=== PATIENT | female | born 1970 | race Caucasian/White ===

== ENCOUNTER 2021-12-24 11:48 | Emergency (ER) | payer BC, SELFPAY ==
[2021-12-24] VITALS (7 sets, daily range): BP systolic 108–123; BP diastolic 55–76; PULSE 64–97; RESP 17–19; TEMP 37.1; O2SAT 99–100; BMI 22.1
--- NOTE | 2021-12-24 12:09 | HMH.EDUTC ---
[place] Disposition Clinical Impression: Blurry vision, bilateral Head ache Qualifiers: Headache type: unspecified Headache chronicity pattern: unspecified pattern Intractability: not intractable Qualified Code(s): R51.9 - Headache, unspecified Disposition: Still a Patient Condition on Discharge: Fair Referrals: Provider,Referral, [Primary Care Provider] - Time of Disposition: 12:30 Medical Decision Making - Medical Records Medical records reviewed: No: I reviewed the patient's medical records. - Tevin Inquiry Pt receiving controlled substance: No Vital Signs: 12/24/21 12:01 Temperature 98.7 F Temperature Source Oral Pulse Rate [Left Radial] 97 H Respiratory Rate 19 Blood Pressure [Right Arm] 114/55 L Blood Pressure Mean [Right Arm] 74 02 Sat by Pulse Oximetry 99 - Lab Data Lab Results 12/24/21 12:10: Influenza Type A Ag Negative, Influenza Type B Ag Negative Medical Decision Narrative: She was transferred to the er due to her blurry vision and headache. [place] HPI - General Stated complaint: h/a, blurred vision Time Seen by Provider: 12/24/21 12:09 Mode of Arrival: Ambulatory Source of Information: Patient Limitations: No Limitations Description of Symptoms (Recalled from Triage Doc. by RN): pt states she was washing dishes and got a sharp pain around her belly button. then pt began to have blurry vision. pt also c/o headache. symtpoms have been off and on for 3 days HEENT Symptoms (Recalled from RN notes): Yes Resp Symptoms (Recalled from RN notes): No Skin Symptoms (Recalled from RN notes): No MS Symptoms (Recalled from RN notes): No Functional Status (Recalled from RN notes): wnl - History of Present Illness Provider Complaint: She states that for the past 2 days she has had blurry vision in both eyes, headache and she has felt bad. She denies that this is the worst headache of her life. She denies any weakness. - Related Data Home Medications Medication Instructions Recorded Confirmed No Known Home Medications 01/09/19 01/09/19 Allergies Allergy/AdvReac Type Severity Reaction Status Date / Time erythromycin base Allergy Severe Hives Verified 12/24/21 12:05 metronidazole [From Flagyl] Allergy Severe Hives Verified 12/24/21 12:05 Penicillins Allergy Severe Hives Verified 12/24/21 12:05 - Worker's Comp Is this a Worker's Comp case?: No [facility] History - Hepatitis A Screen Attestation statement:: This patient has been screened for Hepatitis A risk factors. I have reviewed the patient's past medical history: Yes Medical History: Denies:: Cancer, Diabetes Mellitus Type 1, Diabetes Mellitus Type 2, MRSA Amputation: No - Social History Alcohol Intake: never Occupational Status: employed Housing: house ROS Obtained: Yes All systems reviewed & no additional complaints - Constitutional Constitutional: Denies chills, Denies fever(s), Reports poor appetite, Reports malaise - Eyes Eyes: Denies blind spots, Reports blurry vision, Denies change in vision, Denies diplopia, Denies eye discharge, Denies dry eyes, Denies itchy eyes, Reports loss of peripheral vision, Denies eye pain - ENT Ears, Nose, Mouth, and Throat: Denies dizziness, Denies otalgia, Denies sore throat - Cardiovascular Cardiovascular: Denies chest pain - Respiratory Respiratory: Denies chest congestion, Reports cough, Denies dyspnea, Denies stridor, Denies wheezing - Gastrointestinal Gastrointestingal: Reports: nausea. Denies: abdominal pain, excessive passing of gas, vomiting - Musculoskeletal Musculoskeletal: Denies joint pain - Integumentary/Breasts Skin/Breast: Denies rash Physical Exam - General General appearance: alert, in no apparent distress - Head Head exam: atraumatic, normocephalic, normal inspection - Eye Eye exam: Present: normal appearance, PERRL, EOMI - ENT ENT exam: Present: normal exam, normal oropharynx, mucous membranes moist, TM's normal bilaterally, no
[2021-12-24 12:21] LABS: UTC Influenza A Antigen Negative (Negative)
[2021-12-24 12:22] LABS: UTC Influenza B Antigen Negative (Negative)
--- NOTE | 2021-12-24 12:48 | PC.NURSE ---
ED MD at
--- NOTE | 2021-12-24 13:17 | CT_ITS ---
FINAL REPORT TECHNIQUE: Thin section axial images were obtained from skull base to vertex without contrast. CLINICAL HISTORY: .headache and blurry vision x 3 days FINDINGS: There is no mass effect or midline shift. There is no hydrocephalus. The ventricles are symmetric in size and configuration. There is no extra-axial or intraparenchymal hemorrhage. The posterior fossa is without acute abnormality. The basilar cisterns are preserved. The soft tissues are without acute abnormality. No acute osseous abnormality is identified. IMPRESSION: No acute intracranial abnormality. Reviewed, Interpreted and Dictated by Mckenzie Chaudhry MD Transcribed by Scot Guzman Authenticated by Mckenzie Chaudhry MD on 12/24/2021 04:01:[address] [facility]
[2021-12-24 13:59] LABS: Basophils # 0.1 K/mm3 (0-0.2); Basophils % 0.9 % (0.1-2.0); Eosinophils % 0.3 % (0.1-12.0); Hematocrit 42.1 % (37.0-47.0); Hemoglobin 14.4 g/dL (12.2-16.2); Lymphocytes # 0.8 K/mm3 (0.7-4.5); Lymphocytes % 9.6 % (10-50); Mean Corpuscular HGB Conc 34.1 g/dL (31.8-35.4); Mean Corpuscular Hemoglobin 29.5 pg (27.0-31.2); Mean Corpuscular Volume 86.6 fl (81-99); Mean Platelet Volume 8.9 fl (7.4-10.4); Monocytes # 0.2 K/mm3 (0.1-1.0); Monocytes % 2.5 % (1.7-9.3); Neutrophils # 6.9 K/mm3 (1.8-7.8); Neutrophils % 86.8 % (37.0-80.0); Platelet Count 244 K/mm3 (142-424); Red Blood Count 4.86 M/mm3 (4.20-5.40); Red Cell Distribution Width 14.4 % (11.5-17.5)
[2021-12-24 14:00] LABS: Chloride 105 mmol/L (98-107); MANUAL DIFFERENTIAL MANUAL DIFFERENTIAL (MANUAL DIFF); Sodium 139 mmol/L (136-145)
[2021-12-24 14:01] LABS: Potassium 3.9 mmoL/L (3.5-5.1)
[2021-12-24 14:03] LABS: Alanine Aminotransferase 26 U/L (12-78); Albumin Level 4.9 g/dl (3.5-5.0); Albumin/Globulin Ratio 1.7 (1.1-1.8); Alkaline Phosphatase 46 U/L (38-126); Anion Gap 13.9 mEq/L (5-15); Aspartate Amino Transferase 30 U/L (14-36); Bilirubin,Total 0.4 mg/dl (0.2-1.3); Blood Urea Nitrogen 16 mg/dl (7-17); Carbon Dioxide 24 mmol/L (22.0-30.0); Creatinine Clearance Estimated 145 mL/min (50-200); Estimated Glomerular Filt Rate 131 ml/min (>60); GFR (African American) 158 ML/MIN (>60); Globulin 2.9 g/dL (1.3-3.2); Glucose 105 mg/dl (74-100); Total Protein,Serum 7.8 g/dl (6.3-8.2)
[2021-12-24 14:17] LABS: Eosinophils % 1 % (0-3); Lymphocytes % 10 % (10-50); Monocytes % 1 % (2-9); Neutrophils % 87 % (42-76); Platelet Estimate Normal; RBC Morphology Normal; Total Cells Counted 100
[2021-12-24 14:20] LABS: HCG Qualitative, Serum Negative (Negative)
--- NOTE | 2021-12-24 15:22 | PC.NURSE ---
Contacted Juana in radiology regarding head CT report; she reports she is going to message the radiologist to figure out why it hasnt been read yet
--- NOTE | 2021-12-24 15:45 | PC.NURSE ---
per conrad in radiology there is a issue with reports not crossing over to the system. States as soon as she receives the report she will print it down to out printer.
--- NOTE | 2021-12-24 16:08 | INFXCTL.NOTE ---
FABIOLA COVINGTON at discussing CT results with pt.
--- NOTE | 2021-12-24 16:19 | HMH.EDGENADL ---
[place] Disposition Clinical Impression: Blurry vision, bilateral Head ache Qualifiers: Headache type: unspecified Headache chronicity pattern: unspecified pattern Intractability: not intractable Qualified Code(s): R51.9 - Headache, unspecified Disposition: Home, Self-Care Condition on Discharge: Good Instructions: DI for Headache Additional Instructions: Please follow-up with your primary care physician in 2 to 3 days for further management. Please also see the salesperson sheet music, Dr. Fabien Potter at [facility] for an official eye exam within the next week. Please call [phone] to set up appointment. Please return to the Ed for any worsening symptoms such as numbness, weakness, difficulty ambulating or any other concerns. Please also discuss with your primary care physician regarding treatment for your complex migraines. Referrals: Provider,Referral, [Primary Care Provider] - - Critical Care Critical Care Time: No Attestation: On 12/24/21, the high probability of a clinically significant, sudden or life threatening deterioration of the following system(s) required my full and direct attention, intervention and personal management. The time I documented below is in addition to time spent performing reported procedures but includes the following listed in this critical care notation. Medical Decision Making - Medical Records Medical records reviewed: Yes: I reviewed the patient's medical records. - Tevin Inquiry Pt receiving controlled substance: No Vital Signs: 12/24/21 12:01 12/24/21 12:19 12/24/21 13:59 Temperature 98.7 F 98.7 F Temperature Source Oral Oral Pulse Rate Pulse Rate [Left Radial] 97 H 97 H 76 Respiratory Rate 19 19 Blood Pressure Blood Pressure [Right Arm] 114/55 L 114/55 L 123/76 Blood Pressure Mean [Right Arm] 74 74 91 Blood Pressure Source [Right Arm] Automatic Cuff Automatic Cuff Blood Pressure Position [Right Arm] Sitting Sitting 02 Sat by Pulse Oximetry 99 99 100 Oxygen Delivery Method Room Air Room Air 12/24/21 14:00 12/24/21 14:43 12/24/21 15:20 Temperature Temperature Source Pulse Rate Pulse Rate [Left Radial] 65 64 70 Respiratory Rate Blood Pressure Blood Pressure [Right Arm] 109/64 L 108/55 L 119/71 Blood Pressure Mean [Right Arm] 79 72 87 Blood Pressure Source [Right Arm] Automatic Cuff Blood Pressure Position [Right Arm] Sitting Sitting 02 Sat by Pulse Oximetry 99 99 100 Oxygen Delivery Method Room Air Room Air Room Air 12/24/21 16:52 Temperature 98.7 F Temperature Source Oral Pulse Rate 74 Pulse Rate [Left Radial] Respiratory Rate 17 Blood Pressure 120/69 Blood Pressure [Right Arm] Blood Pressure Mean [Right Arm] Blood Pressure Source [Right Arm] Blood Pressure Position [Right Arm] 02 Sat by Pulse Oximetry Oxygen Delivery Method Room Air - Lab Data Lab results reviewed: Yes: I reviewed the patient's lab results. Lab Results 12/24/21 12:10: Influenza Type A Ag Negative, Influenza Type B Ag Negative 12/24/21 13:35: WBC 8.0, RBC 4.86, Hgb 14.4, Hct 42.1, MCV 86.6, MCH 29.5, MCHC 34.1, RDW 14.4, Plt Count 244, MPV 8.9, Neut % (Auto) 86.8 H, Lymph % (Auto) 9.6 L, [place] % (Auto) 2.5, Eos % (Auto) 0.3, Baso % (Auto) 0.9, Neut # (Auto) 6.9, Lymph # (Auto) 0.8, [place] # (Auto) 0.2, Eos # (Auto) 0.0, Baso # (Auto) 0.1, Total Counted 100, Neutrophils % (Manual) 87 H, Lymphocytes % (Manual) 10, Monocytes % (Manual) 1 L, Eosinophils % (Manual) 1, Blast Cells % 1.0, Platelet Estimate Normal, RBC Morphology Normal 12/24/21 13:35: Sodium 139, Potassium 3.9, Chloride 105, Carbon Dioxide 24, Anion Gap 13.9, BUN 16, Creatinine 0.50 L, Estimated Creat Clear 145, Estimated GFR 131, Est GFR ( Amer) 158, Glucose 105 H, Calcium 10.0, Total Bilirubin 0.4, AST 30, ALT 26, Alkaline Phosphatase 46, Total Protein 7.8, Albumin 4.9, Globulin 2.9, Albumin/Globulin Ratio 1.7 12/24/21 13:35: Serum HCG, Qual Negative Result diagrams: 12/24/21 13:3
== END 2021-12-24 16:54 | disposition home or self-care (01) ==
LOC: UTC 11:57 → ER 12:28
PROVIDERS: Nurse Practitioner Family; Emergency Provider Student in an Organized Health Care Education/Training Program
DX: G43.909 Migraine, unspecified, not intractable, without status migrainosus (principal); Z88.0 Allergy status to penicillin
CPT/HCPCS: 70450; 80053; 84703; 85007; 85025; 87804; 96375; 99284

== ENCOUNTER → 2022-01-27 10:29 | Outpatient (CLI) | payer BC, SELFPAY ==
--- NOTE | 2022-01-27 10:34 | XR_ITS ---
FINAL REPORT CLINICAL HISTORY: neck pain FINDINGS: CERVICAL SPINE Seven views were obtained including flexion and extension views. There is no acute fracture. There is no malalignment. There is straightening of the normal cervical curvature which could be due to positioning or muscle spasm. There is mild degenerative change with small osteophytes. There is no abnormal movement with flexion or extension. There is no soft tissue abnormality. IMPRESSION: Mild degenerative change. No abnormal movement with flexion or extension. Reviewed, Interpreted and Dictated by Akbar Leslie III, MD Transcribed by Karlene Monterroso Authenticated and [facility]
== END ==
PROVIDERS: PCP Family Medicine; Visit Provider Specialist
DX: M54.2 Cervicalgia (principal)
CPT/HCPCS: 72052

== ENCOUNTER → 2022-01-30 08:00 | Outpatient (CLI) | payer BC, SELFPAY | PROVIDERS: PCP Family Medicine; Visit Provider Specialist | DX: M54.2 Cervicalgia (principal); R51.9 Headache, unspecified ==

== ENCOUNTER → 2022-02-05 08:31 | Outpatient (CLI) | payer BC, SELFPAY ==
[2022-02-05 11:54] LABS: Blood Urea Nitrogen 18 mg/dl (7-17); Estimated Glomerular Filt Rate 106 ml/min (>60); GFR (African American) 128 ML/MIN (>60)
== END ==
PROVIDERS: PCP Family Medicine; Visit Provider Specialist
DX: R06.09 Other forms of dyspnea (principal); H53.8 Other visual disturbances; Z87.891 Personal history of nicotine dependence
CPT/HCPCS: 36415; 82565; 84520; 94762

== ENCOUNTER → 2022-02-09 08:03 | Outpatient (CLI) | payer BC, SELFPAY ==
--- NOTE | 2022-02-09 08:04 | MR_ITS ---
FINAL REPORT CLINICAL HISTORY: headache, blurry vision FINDINGS: Multiplanar MR imaging of the brain was performed without and with contrast. There is no evidence of intracranial hemorrhage or mass. No abnormal extra-axial fluid collection is seen. The ventricular size is within normal limits. There is no evidence of shift of the midline structures. The posterior fossa and brainstem have an unremarkable appearance. No area of abnormal restricted diffusion is identified. No abnormal contrast enhancement is seen. Normal major vessel vascular flow voids are noted. IMPRESSION: No acute intracranial abnormality identified. Reviewed, Interpreted and Dictated by Brice Gooden MD Transcribed by Alessandra Mchugh Authenticated and [facility]
== END ==
PROVIDERS: PCP Family Medicine; Visit Provider Specialist
DX: H53.8 Other visual disturbances (principal)
CPT/HCPCS: 70553; A9576

== ENCOUNTER 2022-02-09 09:23 | Emergency (ER) | payer BC, SELFPAY ==
[2022-02-09] VITALS (7 sets, daily range): BP systolic 113–145; BP diastolic 62–77; PULSE 63–90; RESP 16–18; TEMP 37.1; O2SAT 97–100; BMI 22.1
--- NOTE | 2022-02-09 09:37 | ECG_ITS ---
APPROVED REPORT Exam: Resting ECG HR:85 bpm ECG Measurements Heart Rate 85 AXES WY 143 P 83 QRSd 79 QRS 86 QT 356 T 60 QTc 398 Conclusion SINUS RHYTHM WITH SINUS ARRHYTHMIA POSSIBLE LEFT ATRIAL ENLARGEMENT [-0.1mV P-WAVE IN V1/V2] BORDERLINE ECG UNCONFIRMED REPORT Electronically signed by : Frankie Apple MD 02/09/2022 13:58:01
--- NOTE | 2022-02-09 09:39 | PC.NURSE ---
FABIOLA COVINGTON at
--- NOTE | 2022-02-09 09:48 | HMH.EDDIZZ ---
[place] Disposition Clinical Impression: Muscle cramps Adverse reaction to drug Qualifiers: Encounter type: initial encounter Qualified Code(s): T50.905A - Adverse effect of unspecified drugs, medicaments and biological substances, initial encounter Disposition: Home, Self-Care Condition on Discharge: Good Instructions: Dizziness, Nonvertigo Referrals: Rodri Sigala MD [Primary Care Provider] - - Critical Care Critical Care Time: No Attestation: On 02/09/22, the high probability of a clinically significant, sudden or life threatening deterioration of the following system(s) required my full and direct attention, intervention and personal management. The time I documented below is in addition to time spent performing reported procedures but includes the following listed in this critical care notation. Medical Decision Making - Medical Records Medical records reviewed: Yes: I reviewed the patient's medical records. - Tevin Inquiry Pt receiving controlled substance: No Vital Signs: 02/09/22 09:25 02/09/22 09:42 02/09/22 09:45 Temperature 98.7 F Temperature Source Oral Pulse Rate 87 90 Pulse Rate [Right Radial] 88 Respiratory Rate 18 Blood Pressure [Right Arm] 145/65 H Blood Pressure Mean [Right Arm] 91 Blood Pressure Source [Right Arm] Automatic Cuff Blood Pressure Position [Right Arm] Sitting 02 Sat by Pulse Oximetry 100 100 97 Oxygen Delivery Method Room Air - Lab Data Lab Results 02/09/22 09:35: WBC 4.6 L, RBC 5.05, Hgb 14.4, Hct 44.8, MCV 88.8, MCH 28.5, MCHC 32.1, RDW 14.5, Plt Count 241, MPV 8.8, Neut % (Auto) 81.9 H, Lymph % (Auto) 13.5, [place] % (Auto) 3.5, Eos % (Auto) 0.5, Baso % (Auto) 0.6, Neut # (Auto) 3.7, Lymph # (Auto) 0.6 L, [place] # (Auto) 0.2, Eos # (Auto) 0.0, Baso # (Auto) 0.0 02/09/22 09:35: Sodium 137, Potassium 4.1, Chloride 106, Carbon Dioxide 24, Anion Gap 11.1, BUN 18 H, Creatinine 0.60, Estimated Creat Clear 120, Estimated GFR 106, Est GFR ( Amer) 128, Glucose 121 H, Calcium 9.3, Total Bilirubin 0.4, AST 31, ALT 24, Alkaline Phosphatase 51, Troponin I < 0.01, Total Protein 7.5, Albumin 4.5, Globulin 3.0, Albumin/Globulin Ratio 1.5 Result diagrams: 02/09/22 09:35 02/09/22 09:35 Orders (Tests/Meds): ED MEDICATIONS Generic Name Dose Route Start Last Admin Trade Name Freq PRN Reason Stop Dose Admin Sodium Chloride 10 ml 02/09/22 09:42 Sodium Chloride 0.9% 10ml Flush Syringe IV 03/11/22 09:41 NEEDED PRN Maintain IV Site Discontinued Medications Generic Name Dose Route Start Last Admin Trade Name Freq PRN Reason Stop Dose Admin Sodium Chloride 1,000 mls @ 999 mls/hr 02/09/22 09:45 02/09/22 09:52 Sod Chlor 0.9% 1000ml Bag IV 02/09/22 10:45 999 mls/hr .Q1H1M ALONDRA Administration ORDERS Category Date Time Status Troponin I Q3H Lab 02/09/22 12:45 Ordered Troponin I Q3H Lab 02/09/22 15:45 Ordered - ECG Data Tracing #1 I reviewed this ECG and interpreted as documented below: No ventricular rate 85 bpm, ID interval 143 ms, normal QTC. Sinus rhythm with nonspecific changes. ECG initial impression date: 02/09/22 ECG initial impression time: 09:37 - Reevaluation(s) Time: 10:59 Reevaluation #1: On reevaluation, patient is feeling better. Cramping is improved. Repeat neurologic exam is normal. Patient likely had a reaction to the current procedure. She is to maintain hydration. Needs follow-up with PCP for reexamination. Given strict return precautions. Verbalized understanding. Medical Decision Narrative: 51-year-old female presenting with nausea lightheadedness and muscle cramping. Patient seems to be having the symptoms after obtaining MRI, could be related to contrast administration. Is no evidence of anaphylaxis or severe allergic reaction. Patient hemodynamically stable. Work-up initiated. [place] HPI - General Chief Complaint: Dizziness Stated Complaint: shaking, SOA
[2022-02-09 09:51] LABS: Basophils % 0.6 % (0.1-2.0); Eosinophils % 0.5 % (0.1-12.0); Hematocrit 44.8 % (37.0-47.0); Hemoglobin 14.4 g/dL (12.2-16.2); Lymphocytes # 0.6 K/mm3 (0.7-4.5); Lymphocytes % 13.5 % (10-50); Mean Corpuscular HGB Conc 32.1 g/dL (31.8-35.4); Mean Corpuscular Hemoglobin 28.5 pg (27.0-31.2); Mean Corpuscular Volume 88.8 fl (81-99); Mean Platelet Volume 8.8 fl (7.4-10.4); Monocytes # 0.2 K/mm3 (0.1-1.0); Monocytes % 3.5 % (1.7-9.3); Neutrophils # 3.7 K/mm3 (1.8-7.8); Neutrophils % 81.9 % (37.0-80.0); Platelet Count 241 K/mm3 (142-424); Red Blood Count 5.05 M/mm3 (4.20-5.40); Red Cell Distribution Width 14.5 % (11.5-17.5); White Blood Count 4.6 K/mm3 (4.8-10.8)
[2022-02-09 09:57] LABS: Alanine Aminotransferase 24 U/L (12-78); Albumin Level 4.5 g/dl (3.5-5.0); Albumin/Globulin Ratio 1.5 (1.1-1.8); Alkaline Phosphatase 51 U/L (38-126); Anion Gap 11.1 mEq/L (5-15); Aspartate Amino Transferase 31 U/L (14-36); Bilirubin,Total 0.4 mg/dl (0.2-1.3); Blood Urea Nitrogen 18 mg/dl (7-17); Calcium 9.3 mg/dl (8.4-10.2); Carbon Dioxide 24 mmol/L (22.0-30.0); Chloride 106 mmol/L (98-107); Creatinine Clearance Estimated 120 mL/min (50-200); Estimated Glomerular Filt Rate 106 ml/min (>60); GFR (African American) 128 ML/MIN (>60); Glucose 121 mg/dl (74-100); Potassium 4.1 mmoL/L (3.5-5.1); Sodium 137 mmol/L (136-145); Total Protein,Serum 7.5 g/dl (6.3-8.2)
[2022-02-09 10:08] LABS: Troponin I < 0.01 ng/ml (0.00-0.034)
--- NOTE | 2022-02-09 10:15 | PC.NURSE ---
checked on pt at this time, pt standing at BS with assist of her , pt reports her legs do no feel as weak at they did. Pt reports feeling somewhat better. Will continue to monitor.
--- NOTE | 2022-02-09 10:20 | PC.NURSE ---
pt ambulated to restroom with assistance of her at this time
--- NOTE | 2022-02-09 10:39 | PC.NURSE ---
pt given pillow at this time for comfort, at BS, pt on phone at this time. will continue to monitor
--- NOTE | 2022-02-09 10:44 | PC.NURSE ---
Unhooked pt IV, Pt helping pt to restroom.
== END 2022-02-09 11:16 | disposition home or self-care (01) ==
PROVIDERS: Emergency Provider Emergency Medicine; PCP Family Medicine
DX: R25.2 Cramp and spasm (principal); T50.905A Adverse effect of unspecified drugs, medicaments and biological substances, initial encounter; Z88.0 Allergy status to penicillin; Z88.1 Allergy status to other antibiotic agents; Z88.8 Allergy status to other drugs, medicaments and biological substances; R00.2 Palpitations; G43.909 Migraine, unspecified, not intractable, without status migrainosus; I49.9 Cardiac arrhythmia, unspecified; Z87.442 Personal history of urinary calculi
CPT/HCPCS: 80053; 84484; 85025; 93005; 96365; 99284

== ENCOUNTER → 2022-02-16 12:31 | Outpatient (CLI) | payer BC, SELFPAY ==
[2022-02-16 14:48] LABS: Vitamin B12 695 pg/mL (239-931)
[2022-02-17 13:45] LABS: Ceruloplasmin 23.3 mg/dL (19.0-39.0)
== END ==
PROVIDERS: PCP Family Medicine; Visit Provider Specialist
DX: R06.00 Dyspnea, unspecified (principal); R06.89 Other abnormalities of breathing; R51.9 Headache, unspecified
CPT/HCPCS: 36415; 82390; 82607

== ENCOUNTER 2022-02-22 10:47 | Emergency (ER) | payer BC, SELFPAY ==
[2022-02-22] VITALS (7 sets, daily range): BP systolic 103–121; BP diastolic 60–91; PULSE 61–80; RESP 16–18; TEMP 36.6; O2SAT 100; BMI 22.1
--- NOTE | 2022-02-22 11:09 | CT_ITS ---
PROCEDURE INFORMATION: Exam: CT Abdomen And Pelvis With Contrast Exam date and time: 02/22/2022 11:36 AM Age: 51 years old Clinical indication: Other: Rectal bleeding with using bathroom; Additional info: Abdominal pain, bleeding rectal TECHNIQUE: Imaging protocol: Computed tomography of the abdomen and pelvis with contrast. Radiation optimization: All CT scans at this facility use at least one of these dose optimization techniques: automated exposure control; mA and/or kV adjustment per patient size (includes targeted exams where dose is matched to clinical indication); or iterative reconstruction. Contrast material: ISOVUE; Contrast volume: 75 ml; Contrast route: IV; COMPARISON: ABDPELW CT abdomen pelvis w con 01/09/2019 9:31 PM FINDINGS: Liver: Normal. No mass. Gallbladder and bile ducts: Normal. No calcified stones. No ductal dilation. Pancreas: Normal. No ductal dilation. Spleen: Normal. No splenomegaly. Adrenal glands: Normal. No mass. Kidneys and ureters: Punctate nonobstructive calculi in the right kidney. No hydronephrosis. 8 mm right renal cyst. Stomach and bowel: Trace nonspecific fluid/stranding in the pelvis. There is mild wall thickening of the descending colon and rectosigmoid colon. Findings are nonspecific and likely at least accentuated by nondistention. This is poorly evaluated. Given the trace free pelvic fluid and history of rectal bleeding, findings are considered moderately suspicious for acute colitis. Appendix: No evidence of appendicitis. Intraperitoneal space: No free air or drainable fluid collection. Vasculature: Mild vascular calcifications. Lymph nodes: Unremarkable. No enlarged lymph nodes. Urinary bladder: Unremarkable as visualized. Reproductive: Hysterectomy. Tiny left adnexal cyst/follicles with the largest measuring up to 11 mm. Bones/joints: No evidence [id number] spondylosis. Soft tissues: Unremarkable. IMPRESSION: 1. Trace nonspecific fluid/stranding in the pelvis. There is mild wall thickening of the descending colon and rectosigmoid colon. Findings are nonspecific and likely at least accentuated by nondistention. This is poorly evaluated. Given the trace free pelvic fluid and history of rectal bleeding, findings are considered moderately suspicious for acute colitis. 2. Punctate nonobstructive calculi in the right kidney. No hydronephrosis. 3. Other findings as detailed in the body of the report. COMMENTS: Consistent with the [employer]'s Incidental Findings Committee white paper (J Am Melani Radiol 2018): Any incidental renal lesion less than 1 cm or classified as too small to characterize, or any incidental cystic renal lesion characterized as simple-appearing, is likely benign. No follow-up imaging is recommended for these lesions per consensus recommendations based on imaging criteria.
--- NOTE | 2022-02-22 11:11 | HMH.EDGENADL ---
ED Disposition Clinical Impression: Colitis Abdominal pain Qualifiers: Abdominal location: generalized Qualified Code(s): R10.84 - Generalized abdominal pain Disposition: Home, Self-Care Condition on Discharge: Fair Instructions: DI for Acute Abdominal Pain Additional Instructions: You have been evaluated for abdominal pain, colitis. Please follow bland diet. Drink fluids to stay hydrated, Gatorade, Powerade, Pedialyte. Follow-up with Dr. Sigala for stool culture results. Return to the emergency department for any new or worsening symptoms, pain, vomiting, more frequent bowel movements, bleeding, other concerns. Referrals: Rodri Sigala MD [Primary Care Provider] - Time of Disposition: 14:31 - Critical Care Critical Care Time: No Attestation: On 02/22/22, the high probability of a clinically significant, sudden or life threatening deterioration of the following system(s) required my full and direct attention, intervention and personal management. The time I documented below is in addition to time spent performing reported procedures but includes the following listed in this critical care notation. Medical Decision Making - Medical Records Medical records reviewed: Yes: I reviewed the patient's medical records. - Tevin Inquiry Pt receiving controlled substance: No Vital Signs: 02/22/22 10:48 02/22/22 11:21 02/22/22 11:30 Temperature 97.8 F Temperature Source Oral Pulse Rate 75 62 Pulse Rate [Left Radial] 80 Respiratory Rate 18 Blood Pressure 103/65 L 114/60 Blood Pressure [Right Arm] 120/91 H Blood Pressure Mean 84 81 Blood Pressure Mean [Right Arm] 100 Blood Pressure Source [Right Arm] Automatic Cuff 02 Sat by Pulse Oximetry 100 100 Oxygen Delivery Method Room Air 02/22/22 12:03 02/22/22 12:05 02/22/22 12:30 Temperature Temperature Source Pulse Rate 61 61 66 Pulse Rate [Left Radial] Respiratory Rate 18 16 18 Blood Pressure 118/61 118/61 121/64 Blood Pressure [Right Arm] Blood Pressure Mean 84 78 Blood Pressure Mean [Right Arm] Blood Pressure Source [Right Arm] 02 Sat by Pulse Oximetry 100 100 100 Oxygen Delivery Method 02/22/22 14:18 Temperature 97.8 F Temperature Source Oral Pulse Rate 69 Pulse Rate [Left Radial] Respiratory Rate 18 Blood Pressure 118/60 Blood Pressure [Right Arm] Blood Pressure Mean Blood Pressure Mean [Right Arm] Blood Pressure Source [Right Arm] 02 Sat by Pulse Oximetry Oxygen Delivery Method Room Air - Lab Data Lab Results 02/22/22 10:55: WBC 4.3 L, RBC 4.80, Hgb 13.6, Hct 40.0, MCV 83.4, MCH 28.4, MCHC 34.0, RDW 13.9, Plt Count 237, MPV 8.1, Neut % (Auto) 68.3, Lymph % (Auto) 25.7, [place] % (Auto) 4.1, Eos % (Auto) 1.4, Baso % (Auto) 0.5, Neut # (Auto) 2.9, Lymph # (Auto) 1.1, [place] # (Auto) 0.2, Eos # (Auto) 0.1, Baso # (Auto) 0.0 02/22/22 10:55: Sodium 136, Potassium 3.6, Chloride 107, Carbon Dioxide 24, Anion Gap 8.6, BUN 16, Creatinine 0.60, Estimated Creat Clear 122, Estimated GFR 106, Est GFR ( Amer) 128, Glucose 108 H, Calcium 9.2, Total Bilirubin 0.2, AST 39 H, ALT 23, Alkaline Phosphatase 51, Total Protein 7.3, Albumin 4.4, Globulin 2.9, Albumin/Globulin Ratio 1.5, Lipase 83 02/22/22 10:55: Serum HCG, Qual Negative 02/22/22 11:10: Stool Occult Blood Positive A 02/22/22 11:20: Urine Color Yellow, Urine Appearance Clear, Urine pH 5.5, Ur Specific [place] 1.020, Urine Protein Negative, Urine Glucose (UA) Negative, Urine Ketones Negative, Urine Blood Negative, Urine Nitrate Negative, Urine Bilirubin Negative, Urine Urobilinogen 0.2, Ur Leukocyte Esterase Negative, Ur Squamous Epith Cells 3-5, Urine Bacteria 1+ 02/22/22 11:20: Urine HCG, Qual Negative 02/22/22 11:51: Lactate 1.1 Result diagrams: 02/22/22 10:55 02/22/22 10:55 Orders (Tests/Meds): ED MEDICATIONS Discontinued Medications Generic Name Dose Route Start Last Admin Trade Name Freq PRN Reason Stop Dose Admin Iop
[2022-02-22 11:15] LABS: Occult Blood,Stool Positive (Negative)
--- NOTE | 2022-02-22 11:20 | PC.NURSE ---
visitor requesting water for pt. wants to wait for test results. pt and visitor updated on POC
[2022-02-22 11:23] LABS: Basophils % 0.5 % (0.1-2.0); Eosinophils # 0.1 K/mm3 (0.0-0.4); Eosinophils % 1.4 % (0.1-12.0); Hemoglobin 13.6 g/dL (12.2-16.2); Lymphocytes # 1.1 K/mm3 (0.7-4.5); Lymphocytes % 25.7 % (10-50); Mean Corpuscular Hemoglobin 28.4 pg (27.0-31.2); Mean Corpuscular Volume 83.4 fl (81-99); Mean Platelet Volume 8.1 fl (7.4-10.4); Monocytes # 0.2 K/mm3 (0.1-1.0); Monocytes % 4.1 % (1.7-9.3); Neutrophils # 2.9 K/mm3 (1.8-7.8); Neutrophils % 68.3 % (37.0-80.0); Platelet Count 237 K/mm3 (142-424); Red Cell Distribution Width 13.9 % (11.5-17.5); White Blood Count 4.3 K/mm3 (4.8-10.8)
--- NOTE | 2022-02-22 11:23 | PC.NURSE ---
PT AMBULATED BACK FROM BATHROOM WITH URINE SPECIMEN UNABLE TO GIVE STOOL , PT HOOKED BACK TO FLUIDS AND MONITOR . AT BS
[2022-02-22 11:25] LABS: Microscopic, Urine URINE MICROSCOPIC (MICROSCOPIC)
[2022-02-22 11:28] LABS: Alanine Aminotransferase 23 U/L (12-78); Albumin Level 4.4 g/dl (3.5-5.0); Albumin/Globulin Ratio 1.5 (1.1-1.8); Alkaline Phosphatase 51 U/L (38-126); Anion Gap 8.6 mEq/L (5-15); Aspartate Amino Transferase 39 U/L (14-36); Bilirubin,Total 0.2 mg/dl (0.2-1.3); Blood Urea Nitrogen 16 mg/dl (7-17); Calcium 9.2 mg/dl (8.4-10.2); Carbon Dioxide 24 mmol/L (22.0-30.0); Chloride 107 mmol/L (98-107); Creatinine Clearance Estimated 122 mL/min (50-200); Estimated Glomerular Filt Rate 106 ml/min (>60); GFR (African American) 128 ML/MIN (>60); Globulin 2.9 g/dL (1.3-3.2); Glucose 108 mg/dl (74-100); Lipase 83 U/L (23-300); Potassium 3.6 mmoL/L (3.5-5.1); Sodium 136 mmol/L (136-145); Total Protein,Serum 7.3 g/dl (6.3-8.2)
[2022-02-22 11:30] LABS: Appearance,Urine CLEAR (Clear); Bilirubin,Urine Negative (Negative); Blood, Urine Negative (Negative); Color,Urine YELLOW (Yellow); Glucose,Urine (UA) Negative (Negative); Ketones,Urine Negative (Negative); Leukocyte Esterase,Urine Negative (Negative); Nitrate,Urine Negative (Negative); PH,Urine 5.5 (5.0-8.5); Protein,Urine Negative (Negative); Urobilinogen,Urine 0.2 EU/dl (0.2)
[2022-02-22 11:32] LABS: Urine Pregnancy, HCG Qual. Negative (Negative)
[2022-02-22 11:37] LABS: HCG Qualitative, Serum Negative (Negative)
--- NOTE | 2022-02-22 11:40 | SUR.OPER ---
pt going to rad
[2022-02-22 11:46] LABS: Bacteria,Urine 1+ /lpf
--- NOTE | 2022-02-22 11:48 | PC.NURSE ---
pt up to the bathroom, family at bs
[2022-02-22 12:06] LABS: Lactic Acid 1.1 mmol/L (0.7-2.1)
--- NOTE | 2022-02-22 13:45 | PC.NURSE ---
pt up to the bathroom, fluids unhooked at this time
--- NOTE | 2022-02-22 13:55 | PC.NURSE ---
pt returned to the room, fluids started again
== END 2022-02-22 14:20 | disposition home or self-care (01) ==
LOC: ER 11:02
PROVIDERS: Emergency Provider Emergency Medicine; PCP Family Medicine
DX: K52.9 Noninfective gastroenteritis and colitis, unspecified (principal); Z87.19 Personal history of other diseases of the digestive system; Z88.0 Allergy status to penicillin; Z88.1 Allergy status to other antibiotic agents; Z88.8 Allergy status to other drugs, medicaments and biological substances; I49.9 Cardiac arrhythmia, unspecified; G43.909 Migraine, unspecified, not intractable, without status migrainosus; R00.2 Palpitations; Z87.442 Personal history of urinary calculi; M79.7 Fibromyalgia
CPT/HCPCS: 36415; 74177; 80053; 81001; 81025; 82272; 83605; 83690; 84703; 85025; 99284; G0328; Q9967

== ENCOUNTER → 2022-03-04 09:56 | Outpatient (CLI) | payer BC, SELFPAY | PROVIDERS: PCP Family Medicine; Visit Provider Specialist | DX: R06.00 Dyspnea, unspecified (principal); R06.89 Other abnormalities of breathing; R25.8 Other abnormal involuntary movements | CPT/HCPCS: 94010; 94618 ==

== ENCOUNTER → 2022-05-28 11:02 | Outpatient (CLI) | payer BC, SELFPAY ==
--- NOTE | 2022-05-28 11:09 | CT_ITS ---
FINAL REPORT TECHNIQUE: Axial CT images of the abdomen were obtained without contrast. Coronal reformatted images were also obtained.This study was performed with techniques to keep radiation doses as low as reasonably achievable (ALARA). Individualized dose reduction techniques using automated exposure control or adjustment of mA and/or kV according to the patient''s size were employed. CLINICAL HISTORY: RT FLANK PAIN FINDINGS: There is mild scarring in the lung bases. The liver has an unremarkable appearance, without evidence of mass. The gallbladder appears normal without evidence of gallstones. There is no evidence of biliary ductal dilatation. The pancreas appears normal. The spleen size is within normal limits. There are several less than 3 mm nonobstructing bilateral renal stones. There is no hydronephrosis. There is partially visualize right hydroureter. There is no evidence of adenopathy. No abnormal fluid collection is seen. No localized inflammatory processes identified. The appendix is normal. IMPRESSION: Bilateral nonobstructing renal stones. No hydronephrosis. Partially visualized right hydroureter. Reviewed, Interpreted and Dictated by Akbar Leslie III, MD Transcribed by Scot Guzman Authenticated and [facility]
--- NOTE | 2022-05-28 15:22 | CT_ITS ---
FINAL REPORT CLINICAL HISTORY: RT HYDROURETER COMPARISON: January 2022 FINDINGS: Axial images through the pelvis were performed by computed tomography. Sagittal and coronal reconstruction images were performed. This study was performed with techniques to keep radiation doses as low as reasonably achievable (ALARA). Individualized dose reduction techniques using automated exposure control or adjustment of mA and/or kV according to the patient's size were employed. No fracture is identified. No dislocation identified. The appendix is normal. There are several phleboliths in the pelvis. No ureteral stone is identified. There is mild urinary bladder wall thickening which is likely inflammatory. There has been hysterectomy. IMPRESSION: No ureteral stone identified. Reviewed, Interpreted and Dictated by Akbar Leslie III, MD Transcribed by Scot Guzman Authenticated and [facility]
== END ==
PROVIDERS: PCP Family Medicine; Visit Provider Physician Assistant
DX: R10.9 Unspecified abdominal pain (principal); N13.4 Hydroureter
CPT/HCPCS: 72192; 74150

== ENCOUNTER → 2022-05-28 15:23 | Outpatient (CLI) | payer BC, SELFPAY ==
[2022-05-28 15:51] LABS: Chloride 102 mmol/L (98-107); Potassium 3.9 mmoL/L (3.5-5.1); Sodium 137 mmol/L (136-145)
[2022-05-28 15:54] LABS: Alanine Aminotransferase 24 U/L (12-78); Albumin Level 4.6 g/dl (3.5-5.0); Albumin/Globulin Ratio 1.6 (1.1-1.8); Alkaline Phosphatase 55 U/L (38-126); Anion Gap 13.9 mEq/L (5-15); Aspartate Amino Transferase 34 U/L (14-36); Bilirubin,Total 0.2 mg/dl (0.2-1.3); Blood Urea Nitrogen 20 mg/dl (7-17); Calcium 9.2 mg/dl (8.4-10.2); Carbon Dioxide 25 mmol/L (22.0-30.0); Estimated Glomerular Filt Rate 105 ml/min (>60); GFR (African American) 128 ML/MIN (>60); Globulin 2.8 g/dL (1.3-3.2); Glucose 90 mg/dl (74-100); Total Protein,Serum 7.4 g/dl (6.3-8.2)
== END ==
PROVIDERS: PCP Family Medicine; Visit Provider Physician Assistant
DX: R10.9 Unspecified abdominal pain (principal)
CPT/HCPCS: 36415; 80053

== ENCOUNTER 2022-06-17 09:45 | Emergency (ER) | payer BC, SELFPAY ==
--- NOTE | 2022-06-17 09:42 | ECG_ITS ---
APPROVED REPORT Exam: Resting ECG HR:125 bpm ECG Measurements Heart Rate 125 AXES IA 129 P 86 QRSd 82 QRS 89 QT 336 T -68 QTc [address] DEVIATION AND MODERATE T-WAVE ABNORMALITY, CONSIDER INFERIOR ISCHEMIA [-0.1+ mV T-WAVE IN II/aVF] ABNORMAL ECG UNCONFIRMED REPORT Electronically signed by : Frankie Apple MD 06/18/2022 21:17:54
[2022-06-17 09:45] VITALS: BP 115/64; PULSE 93; RESP 18; TEMP 36.5; O2SAT 98; BMI 22.1
[2022-06-17 09:49] VITALS: PULSE 111; RESP 12; O2SAT 100
--- NOTE | 2022-06-17 09:49 | PC.NURSE ---
ED MD AT BEDSIDE FOR EVALUATION
--- NOTE | 2022-06-17 09:54 | XR_ITS ---
FINAL REPORT CLINICAL HISTORY: soa COMPARISON: 01/09/2019 FINDINGS: TWO-VIEW CHEST The heart size is normal. The mediastinum is normal. The lungs are clear. There is no pneumothorax. IMPRESSION: No acute cardiopulmonary process. Reviewed, Interpreted and Dictated by Brice Gooden MD Transcribed by Jessica Keith Authenticated and [facility]
--- NOTE | 2022-06-17 09:55 | HMH.EDGENADL ---
Discharge Plan Disposition Patient Disposition: Home, Self-Care Condition: Good Prescriptions Prescriptions: New levalbuterol tartrate [Xopenex HFA] 45 mcg/actuation HFA aerosol inhaler 1 inh inhalation Q6HP PRN (Reason: shortness of breath or wheezing) Qty: 15 0RF Activity Restrictions/Add. Instructions Additional Instructions/Restrictions: Use Xopenex inhaler as needed. Follow-up with the directional drill operator as scheduled. Follow-up with primary care provider as well, call for appointment. Clinical Impressions Clinical Impression: Shortness of breath, Acute hyperventilation, Chronic cough Instructions Patient Instructions: DI for Hyperventilation, DI for Shortness of Breath Discharge ED Provider: Amador Vitale General Adult HPI General Chief complaint: Chest Pain Stated complaint: chest tightness Time Seen by Provider: 06/17/22 09:45 History of Present Illness HPI narrative: States that she awakened this morning short of breath. She says that she coughed up a pound of green phlegm, and I am not exaggerating . She is also having tingling in her hands and her feet. Tingling across her chest. States that she has had some slight chest congestion for couple of days, but nothing like this. Denies fever. No leg pain or swelling. States that she has a productive cough every morning associated with shortness of breath, but it has never been this severe. Related Data Previous Rx's Medication Instructions Recorded levalbuterol tartrate 45 1 inh inhalation Q6HP PRN 06/17/22 mcg/actuation aerosol inhaler shortness of breath or wheezing (Xopenex HFA) #15 grams Allergies Allergy/AdvReac Type Severity Reaction Status Date / Time erythromycin base Allergy Severe Hives Verified 01/27/22 09:13 metronidazole [From Flagyl] Allergy Severe Hives Verified 01/27/22 09:13 Penicillins Allergy Severe Hives Verified 01/27/22 09:13 PFSH PFSH Social History Smoking Status: Never smoker alcohol intake: never current occupational status: employed Travel in the last 8 weeks: None housing: house ROS Obtained: Yes Systems reviewed as appropriate & no additional complaints except as documented Constitutional Constitutional: Denies fever(s), Denies headache(s) and Denies weakness ENT Ears, Nose, Mouth, and Throat: Denies headache(s), Denies nasal discharge and Denies sore throat Cardiovascular Cardiovascular: Denies chest pain and Denies leg edema Respiratory Respiratory: Reports shortness of breath, Denies hemoptysis and Reports cough with sputum production Gastrointestinal Gastrointestingal: Denies abdominal pain, constipation, diarrhea or vomiting Genitourinary Female Genitourinary: Denies difficulty voiding, Denies dysuria and Denies flank pain Musculoskeletal Musculoskeletal: Denies numbness Neurologic Neurologic: Denies headache(s), Denies numbness and Denies weakness Physical Exam General General appearance: alert and anxious Head Head exam: atraumatic and normocephalic Eye Eye exam: Present normal appearance and EOMI ENT ENT exam: Present mucous membranes moist Neck Neck exam: Present normal inspection and trachea midline Chest Chest inspection: Present normal inspection and symmetric chest wall rise Respiratory Respiratory exam: Present normal lung sounds bilaterally; Absent respiratory distress Cardiovascular Cardiovascular exam: Present normal rhythm, tachycardia and normal heart sounds Abdominal Exam Abdominal exam: Present soft and normal bowel sounds; Absent distention, tenderness, guarding, rebound or rigidity Extremities Exam Extremities exam: Present normal inspection; Absent edema or calf tenderness Neurological Exam Neurological exam: Present alert and oriented X3 Psychiatric Psychiatric exam: Present anxious Skin Skin exam: Present warm and dry Medical Decision Making Tevin Inquiry Pt receiving controlled substance: No Vital Signs: 06/17/22 09:45 06/17/22 09:49 06/02
[2022-06-17 10:01] LABS: Basophils # 0.1 K/mm3 (0-0.2); Basophils % 0.6 % (0.1-2.0); Eosinophils # 0.1 K/mm3 (0.0-0.4); Eosinophils % 1.1 % (0.1-12.0); Hematocrit 42.7 % (37.0-47.0); Hemoglobin 14.3 g/dL (12.2-16.2); Lymphocytes # 2.3 K/mm3 (0.7-4.5); Mean Corpuscular HGB Conc 33.5 g/dL (31.8-35.4); Mean Corpuscular Hemoglobin 28.4 pg (27.0-31.2); Mean Corpuscular Volume 84.8 fl (81-99); Mean Platelet Volume 8.6 fl (7.4-10.4); Monocytes # 0.3 K/mm3 (0.1-1.0); Monocytes % 2.5 % (1.7-9.3); Neutrophils # 7.1 K/mm3 (1.8-7.8); Neutrophils % 72.7 % (37.0-80.0); Platelet Count 329 K/mm3 (142-424); Red Blood Count 5.04 M/mm3 (4.20-5.40); Red Cell Distribution Width 14.7 % (11.5-17.5); White Blood Count 9.8 K/mm3 (4.8-10.8)
[2022-06-17 10:09] LABS: Alanine Aminotransferase 22 U/L (12-78); Albumin Level 4.7 g/dl (3.5-5.0); Albumin/Globulin Ratio 1.6 (1.1-1.8); Alkaline Phosphatase 95 U/L (38-126); Anion Gap 10.4 mEq/L (5-15); Aspartate Amino Transferase 27 U/L (14-36); Bilirubin,Total 0.5 mg/dl (0.2-1.3); Blood Urea Nitrogen 17 mg/dl (7-17); Calcium 9.8 mg/dl (8.4-10.2); Carbon Dioxide 21 mmol/L (22.0-30.0); Chloride 103 mmol/L (98-107); Creatinine Clearance Estimated 119 mL/min (50-200); Estimated Glomerular Filt Rate 105 ml/min (>60); GFR (African American) 128 ML/MIN (>60); Glucose 113 mg/dl (74-100); Potassium 3.4 mmoL/L (3.5-5.1); Sodium 131 mmol/L (136-145); Total Protein,Serum 7.7 g/dl (6.3-8.2)
[2022-06-17 10:10] LABS: ABG Base Excess -2.5 mmol/L (-2.4-2.3); ABG HCO3 18.5 mmhg (22.0-26.0); ABG Oxygen Saturation 99 % (90-100); ABG PO2 111.3 mmhg (80-100)
[2022-06-17 10:11] LABS: Allen's Test acceptable; Oxygen 21 %; Source Right Radial
--- NOTE | 2022-06-17 10:11 | PC.NURSE ---
RESP CALLED WITH CRITICAL ABG RESULTS DR DOLL AWARE
[2022-06-17 10:13] LABS: ABG PH 7.64 mmol/L (7.35-7.45)
[2022-06-17 10:14] LABS: D-Dimer 0.32 ug/mL (0.0-0.5)
[2022-06-17 10:14] LABS: ABG PCO2 17.7 mmhg (35.0-45.0)
--- NOTE | 2022-06-17 10:17 | PC.NURSE ---
DR. DOLL AT BEDSIDE TO SPEAK WITH PT AND
[2022-06-17 10:23] LABS: Troponin I < 0.01 ng/ml (0.00-0.034)
[2022-06-17 10:30] VITALS: BP 123/73; PULSE 86; RESP 19; O2SAT 100
[2022-06-17 11:00] VITALS: BP 126/70; PULSE 86; RESP 13; O2SAT 100
--- NOTE | 2022-06-17 11:38 | ECG_ITS ---
APPROVED REPORT Exam: Resting ECG HR:67 bpm ECG Measurements Heart Rate 67 AXES W[place] 145 P 88 QRSd 81 QRS 89 QT 401 T 81 QTc 417 Conclusion SINUS RHYTHM MODERATE ST DEPRESSION [0.05+ mV ST DEPRESSION] ABNORMAL ECG UNCONFIRMED REPORT Electronically signed by : Frankie Apple MD 06/18/2022 21:17:34
[2022-06-17 13:32] LABS: Troponin I < 0.01 ng/ml (0.00-0.034)
--- NOTE | 2022-06-17 13:50 | PC.NURSE ---
DR. DOLL AT AT BEDSIDE TO DISCUSS POC WITH PT AND FAMILY
[2022-06-17 14:34] VITALS: BP 101/67; PULSE 76; RESP 20; TEMP 36.5; O2SAT 99
== END 2022-06-17 14:35 | disposition home or self-care (01) ==
PROVIDERS: Emergency Provider Emergency Medicine; PCP Family Medicine
DX: R06.02 Shortness of breath (principal); R20.2 Paresthesia of skin; R06.4 Hyperventilation; R05.9 Cough, unspecified; R00.0 Tachycardia, unspecified; I45.10 Unspecified right bundle-branch block; Z79.52 Long term (current) use of systemic steroids; Z88.0 Allergy status to penicillin; Z88.1 Allergy status to other antibiotic agents; Z88.3 Allergy status to other anti-infective agents; Z88.8 Allergy status to other drugs, medicaments and biological substances
CPT/HCPCS: 71046; 80053; 82803; 84484; 85025; 85378; 93005; 99285

== ENCOUNTER → 2022-07-02 15:31 | Outpatient (CLI) | payer BC, SELFPAY ==
--- NOTE | 2022-07-02 15:34 | CA_ITS ---
APPROVED REPORT EXAM: Comprehensive 2D, Doppler, and color-flow Echocardiogram Optical Model Maker And Tester: Lidia Kulkarni, RCS, RVS Ht: 5 ft 9 in Wt: 149lbs BSA: 1.82 HR: 86 bpm BP: 128/76 mmHg Rhythm: NSR Indications: Tachycardia, Pectus excavatum, Abn EKG-RAD, SOA, Palpitations Echo Enhancing Agent Comments: Technically difficult due to body habitus 2D Dimensions IVSd 0.79 cm F: 0.6-1.0 LVEF (Visual) 63.40 % PWd 0.78 cm F: 0.6 - 1.0 LA Volume 21.70 mL LVDd 4.34 cm F: 3.9 - 5.3 LA Volume Index [id number] mL/m2 (M/F) 16-34 LVDs 2.86 cm F: 2.2 - 3.5 Aortic Root 3.29 cm F: 2.7 - 3.3 Left Atrium 1.97 cm F: 2.7 - 3.8 LVOT 1.94 cm (M/F) 1.5-2.5 M-Mode Dimensions LA Diam 2.63 cm (1.9-4.0) Ao Diam 3.35 cm (2.0-3.7) EPSs 0.20 cm TAPSE 2.62 (<1.7) LV Diastology E Decel Time 190.00 (160-240 msec) E/A Ratio 1.16 MED E' 14.50 (< 7 cm/sec) MED A' 12.80 cm/s E'/MED E' Ratio 5.68 (>14) LAT E' 19.20 (<10 cm/sec) LAT A' 10.50 cm/s E/LAT E' Ratio 4.29 (>14) Aortic Valve LVOT Max 99.00 (70-110 cm/s) LVOT VTI 21.60 cm AoV Peak [place]. 115.00 (50-130 cm/s) AO Peak GR. 5.30 mmHg AO Mean GR. 2.70 (<5 mmHg) AO VTI 25.63 (18-25 cm) MARIA ESTHER (VTI) 2.49 (2.5-4.5 cm2) Mitral Valve MV A Velocity 71.00 (40-130 cm/s) E/A Ratio 1.16 MV Decel. Time 190.00 (160-240 ms) Pulmonary Valve PV Peak Velocity 93.00 (50-150 cm/s) Tricuspid Valve TR P. Velocity 184.00 cm/s RAP Estimate 10.00 mmHg RVSP 23.60 mmHg Left Ventricle Left atrium is normal size, left ventricle is normal size, there is no concentric left ventricular hypertrophy, estimated ejection fraction 55% with no regional wall motion abnormality, diastolic parameters are within normal range. Right Ventricle Right atrium and right ventricle are normal size and contractility. Aortic Valve Aortic valve is grossly normal there is no aortic stenosis or aortic insufficiency. Mitral Valve Mitral valve is grossly normal, there is no mitral stenosis or significant mitral regurgitation. Tricuspid Valve Tricuspid valve grossly normal, there is no significant tricuspid regurgitation noted. Pulmonic Valve Pulmonic valve is poorly visualized. Great Vessels Aortic root is normal size. Inferior vena cava is normal size with normal inspiratory collapse. Pericardium No significant pericardial effusion. Conclusion 1. Normal left ventricular size preserved left ventricular systolic function, estimated ejection fraction 55% with no regional wall motion abnormality, diastolic parameters are within normal range. 2. No significant pericardial effusion noted. 3. Inferior vena cava is normal size with normal inspiratory collapse. Electronically signed by : Lenin Aleman MD 07/03/2022 12:27:10
--- NOTE | 2022-07-02 16:04 | XR_ITS ---
PROCEDURE INFORMATION: Exam: XR Chest Exam date and time: 07/02/2022 4:28 PM Age: 52 years old Clinical indication: Shortness of breath; Additional info: SOB TECHNIQUE: Imaging protocol: Radiologic exam of the chest. Views: 2 views. COMPARISON: CR XR CHEST 2V 06/17/2022 10:15 AM FINDINGS: Lungs: Hyperlucent changes are demonstrated. Increase in the lung volumes is demonstrated. Pleural spaces: Unremarkable. No pleural effusion. No pneumothorax. Heart/Mediastinum: Unremarkable. No cardiomegaly. Diaphragm: There is flattening of the hemidiaphragms. Bones/joints: Unremarkable. IMPRESSION: 1. No evidence of acute cardiopulmonary disease. 2. Findings suggesting changes of chronic obstructive pulmonary disease. Clinically correlate.
--- NOTE | 2022-07-02 16:04 | US_ITS ---
PROCEDURE INFORMATION: Exam: US Soft Tissue Head and Neck, Thyroid Exam date and time: 07/02/2022 4:07 PM Age: 52 years old Clinical indication: Other: Tachycardia, weight loss, ; additional info: Tachycardia, weight loss, sister had thyroid cancer TECHNIQUE: Imaging protocol: Real-time ultrasound scan of the neck with image documentation. Exam focused on the thyroid. COMPARISON: None FINDINGS: Right thyroid lobe: Right lobe: 5.3 cm in length by 1.1 cm in AP dimension and 1.4 cm transversely. Left thyroid lobe: Left lobe: 5.3 x 1.9 x 1.5 cm in length, AP and transverse dimensions. Isthmus: 3 mm. Other findings: No evidence of solid or cystic abnormalities. IMPRESSION: Unremarkable thyroid gland.
[2022-07-02 18:20] LABS: Basophils % 0.5 % (0.1-2.0); Eosinophils % 0.3 % (0.1-12.0); Hematocrit 41.6 % (37.0-47.0); Hemoglobin 13.9 g/dL (12.2-16.2); Lymphocytes # 0.7 K/mm3 (0.7-4.5); Lymphocytes % 10.3 % (10-50); Mean Corpuscular HGB Conc 33.4 g/dL (31.8-35.4); Mean Corpuscular Hemoglobin 28.1 pg (27.0-31.2); Mean Corpuscular Volume 84.2 fl (81-99); Mean Platelet Volume 9.5 fl (7.4-10.4); Monocytes # 0.2 K/mm3 (0.1-1.0); Monocytes % 2.4 % (1.7-9.3); Neutrophils # 5.9 K/mm3 (1.8-7.8); Neutrophils % 86.6 % (37.0-80.0); Platelet Count 285 K/mm3 (142-424); Red Blood Count 4.94 M/mm3 (4.20-5.40); Red Cell Distribution Width 14.4 % (11.5-17.5); White Blood Count 6.8 K/mm3 (4.8-10.8)
[2022-07-02 18:24] LABS: MANUAL DIFFERENTIAL MANUAL DIFFERENTIAL (MANUAL DIFF)
[2022-07-02 18:31] LABS: Alanine Aminotransferase 25 U/L (12-78); Albumin Level 4.9 g/dl (3.5-5.0); Alkaline Phosphatase 65 U/L (38-126); Anion Gap 10.9 mEq/L (5-15); Aspartate Amino Transferase 31 U/L (14-36); Bilirubin,Direct 0.1 mg/dl (0.0-0.4); Bilirubin,Indirect 0.2 mg/dL (0.0-0.9); Bilirubin,Total 0.3 mg/dl (0.2-1.3); Bilirubin,Unconjugated 0.3 mg/dL (0.0-1.1); Blood Urea Nitrogen 16 mg/dl (7-17); Calcium 9.9 mg/dl (8.4-10.2); Carbon Dioxide 25 mmol/L (22.0-30.0); Chloride 107 mmol/L (98-107); Cholesterol 240 mg/dl (140-200); Estimated Glomerular Filt Rate 105 ml/min (>60); GFR (African American) 128 ML/MIN (>60); Glucose 98 mg/dl (74-100); HDL Cholesterol 79 mg/dl (40-60); Potassium 3.9 mmoL/L (3.5-5.1); Sodium 139 mmol/L (136-145); Total Protein,Serum 7.8 g/dl (6.3-8.2); Triglycerides 53 mg/dl (30-150); VLDL Cholesterol 11 mg/dL (0-40)
[2022-07-02 18:42] LABS: Direct LDL Cholesterol 128.01 mg/dL (100-129)
[2022-07-02 18:43] LABS: NT Pro Brain Natriuretic Pep. 276 pg/mL (0-125)
[2022-07-02 18:51] LABS: 25-OH Vitamin D, Total 30.8 ng/mL (30-100); Free T4 (Free Thyroxine) 1.17 ng/dl (0.78-2.19)
[2022-07-02 19:04] LABS: Thyroid Stimulating Hormone 1.23 uIU/mL (0.465-4.68)
[2022-07-02 23:10] LABS: Acanthocytes 2+; Lymphocytes % 17 % (10-50); Monocytes % 1 % (2-9); Neutrophils % 81 % (42-76); Platelet Estimate Normal; Total Cells Counted 100
[2022-07-10 22:45] LABS: 1,25 Dihydroxy Vitamin D 65 pg/mL (.); 1,25-Dihydroxy, Vitamin D-2 <10 pg/mL (.); 1,25-Dihydroxy, Vitamin D-3 65 pg/mL (.)
== END ==
PROVIDERS: PCP Family Medicine; Visit Provider Internal Medicine
DX: R00.0 Tachycardia, unspecified (principal); R06.02 Shortness of breath; R07.9 Chest pain, unspecified; I63.9 Cerebral infarction, unspecified; R06.00 Dyspnea, unspecified; I11.0 Hypertensive heart disease with heart failure; I50.9 Heart failure, unspecified; E11.9 Type 2 diabetes mellitus without complications
CPT/HCPCS: 36415; 71046; 76536; 80048; 80061; 80076; 82306; 82652; 83880; 84439; 84443; 85007; 85025; 93225; 93226; 93306

== ENCOUNTER → 2022-07-08 10:36 | Outpatient (CLI) | payer BC, SELFPAY ==
--- NOTE | 2022-07-08 10:36 | CT_ITS ---
FINAL REPORT TECHNIQUE: Axial images were obtained from the lung apex to the mid abdomen by computed tomography. Coronal reformatted images were obtained. This study was performed with techniques to keep radiation doses as low as reasonably achievable, (ALARA). Individualized dose reduction techniques using automated exposure control or adjustment of mA and/or kV according to the patient's size were employed. CLINICAL HISTORY: Chronic COugh FINDINGS: There is no axillary adenopathy. There is no hilar or mediastinal adenopathy. Heart size is normal. There is no pericardial or pleural effusion. Limited images of the upper abdomen are unremarkable. No suspicious infiltrate or nodule is identified. There is mild pulmonary scarring in the left lung base. IMPRESSION: No acute process. Mild pulmonary scarring in the left lung base. Reviewed, Interpreted and Dictated by Akbar Leslie III, MD Transcribed by Karlene Monterroso Authenticated and [facility]
== END ==
PROVIDERS: PCP Family Medicine; Visit Provider Internal Medicine Pulmonary Disease
DX: R05.3 Chronic cough (principal)
CPT/HCPCS: 71250